=== PATIENT | female | born 1980 | race African-American/Black ===

== ENCOUNTER 2017-10-02 17:12 | Emergency (ER) | payer OTHER, MEDICAID ==
[~2017-10-02] VITALS: Ht 170.2 cm; Wt 82.0 kg
[2017-10-02 17:21] VITALS: BP 130/82; PULSE 86; RESP 12; TEMP 98.3; O2SAT 97
[2017-10-02] MEDS ORDERED: ORPHENADRINE INJ 60 MG/2 ML AMP IM ONE (19:15)
[2017-10-02] MEDS ORDERED: KETOROLAC TROMETHAMINE 60 MG/2 ML (IM) VIAL IM ONE (19:15)
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
[2017-10-02] MEDS ORDERED: IBUP1TAB7 PO (20:21)
[2017-10-02] MEDS ORDERED: BACL10TA PO (20:21)
== END 2017-10-02 20:48 | disposition home or self-care (01) ==
LOC: NEPD 17:12
DX: S16.1XXA Strain of muscle, fascia and tendon at neck level, initial encounter (principal); V43.63XA Car passenger injured in collision with pick-up truck in traffic accident, initial encounter; Y92.488 Other paved roadways as the place of occurrence of the external cause
CPT/HCPCS: 72125; 84703; 96372; 99284; J1885; J2360